=== PATIENT | male | born 1995 | race Hispanic/Latino ===

== ENCOUNTER 2024-02-28 06:26 | Inpatient (IN) | payer SELFPAY ==
[2024-02-28] MEDS ORDERED: EPINEPHrine 1 MG/ML VIAL ONE (07:56)
[2024-02-28] MEDS ORDERED: Bupivacaine PF 0.5% 30 ML VIAL ONE (07:56)
[2024-02-28] MEDS ORDERED: fentaNYL PF 100 MCG/2 ML SYRINGE ONE (07:57)
[2024-02-28] MEDS ORDERED: Lidocaine 2% PF 5 ML VIAL ONE (07:58)
[2024-02-28] MEDS ORDERED: PROPOFOL 20 ML ONE (07:58)
[2024-02-28] MEDS ORDERED: Rocuronium Bromide 10 MG/ML (10ML VIAL) ONE (08:00)
[2024-02-28] MEDS ORDERED: Ketorolac Tromethamine 30 MG (1 mL) VIAL ONE (08:00)
[2024-02-28] MEDS ORDERED: Dexamethasone 20 MG/5 ML VIAL ONE (08:00)
[2024-02-28] MEDS ORDERED: Ondansetron PF 4 MG/2 ML Vial ONE (08:00)
[2024-02-28] MEDS ORDERED: HYDROmorphone 2 MG/ML VIAL ONE (09:03)
[2024-02-28] MEDS ORDERED: SUGAMMADEX SODIUM 200 MG/2 ML VIAL ONE (09:19)
[2024-02-28] MEDS ORDERED: HYDROmorphone 2 MG/ML VIAL SLOW IVP PRN (09:21)
[2024-02-28] MEDS ORDERED: Promethazine HCl 25 MG/ML VIAL IM PRN (09:21)
[2024-02-28] MEDS ORDERED: Ondansetron HCl/PF 4 MG/2 ML Vial IVP PRN (09:21)
[2024-02-28] MEDS ORDERED: PACU-Morphine 4MG/ML VIAL SLOW IVP PRN (09:21)
[2024-02-28] MEDS: Lactated Ringer's 1,000 ML IV SCH (09:33)
[2024-02-28] MEDS ORDERED: hydrALAZINE 20 MG/ML VIAL SLOW IVP PRN (09:59)
[2024-02-28] MEDS ORDERED: Morphine 2 MG/ML VIAL SLOW IVP PRN (09:59)
[2024-02-28] MEDS ORDERED: traMADol HCl 50 MG TAB PO PRN (09:59)
[2024-02-28] MEDS ORDERED: Morphine 4 MG/ML VIAL SLOW IVP PRN (09:59)
[2024-02-28] MEDS ORDERED: Ondansetron PF 4 MG/2 ML Vial IVP PRN (10:11)
[2024-02-28] MEDS ORDERED: Ondansetron ORAL SOLN. 4 MG/5 ML UDCUP PO PRN (10:11)
[2024-02-28] MEDS ORDERED: Acetaminophen 500 MG TAB PO PRN (11:24)
[2024-02-28] MEDS ORDERED: fentaNYL 50 mcg/mL 1 mL Vial ONE (12:01)
[2024-02-28 13:23] VITALS: BMI 30.7
[2024-02-28] MEDS ORDERED: Piperacillin/Tazobactam 4.5 GM in Sodium Chloride 0.9% 100 ML IVPB SCH (14:00)
[2024-02-28] MEDS: Ketorolac Tromethamine 30 MG (1 mL) VIAL IVP SCH ×2 (14:05→15:31)
[2024-02-28] MEDS: Piperacillin/Tazobactam 3.375 GM in Sodium Chloride 0.9% 100 ML IVPB SCH ×2 (15:32→19:46)
[2024-02-28] MEDS: Enoxaparin 40 MG (0.4 mL) SYRINGE SC SCH (19:46)
[2024-02-29 06:05] LABS: #Basophils 0.03 10x3/uL (0.0-0.2); #Eosinphils Less than 0.03 10x3/uL (0.0-0.7); %Basophils 0.2 % (0.0-1.0); %Eosinophils 0.1 % (0.0-10.0); %Lymphocytes 10.1 % (21.0-51.0); %Monocytes 6.5 % (0.0-10.0); %Neutrophils 82.6 % (42.0-75.0); Hematocrit 42.3 % (42.0-52.0); Hemoglobin 13.7 g/dL (14.0-18.0); Mean Corpuscular HGB CONC 32.4 g/dL (32.0-36.0); Mean Corpuscular Hemoglobin 28.5 pg (27.0-31.0); Mean Corpuscular Volume 88.1 fL (78.0-98.0); Mean Platelet Volume 10.4 fL (7.4-10.4); Platelet Count 290 10x3/uL (130-400); RBC Distribution Width 12.2 % (11.5-14.5)
[2024-02-29 06:24] LABS: ALT (SGPT) 15 U/L (8-55); AST (SGOT) 13 U/L (5-34); Albumin 3.2 g/dL (3.5-5.0); Alkaline Phosphatase 51 U/L (40-110); Anion Gap 13 mmol/L (10-20); BUN (Urea Nitrogen) 12 mg/dL (8.9-20.6); Bilirubin, Total 1.1 mg/dL (0.2-1.2); Calc. Creatinine Clearance 178 mL/min (70-130); Calcium 9.4 mg/dL (7.8-10.44); Carbon Dioxide 23 mmol/L (22-29); Chloride 106 mmol/L (98-107); Estimated GFR 125; Globulin 4.1 g/dL (2.4-3.5); Glucose 97 mg/dL (70-105); Protein, Total 7.3 g/dL (6.0-8.3); Sodium 138 mmol/L (136-145)
[2024-02-29] MEDS: Pantoprazole 40 MG VIAL IVP SCH (08:42)
[2024-02-29 13:17] VITALS: BP 145/89; TEMP 98.8
[2024-02-29] MEDS ORDERED: Ibuprofen 600 MG TAB PO PRN (15:00)
[2024-02-29] MEDS ORDERED: Amoxicillin/Potassium Clav 875 MG TAB PO SCH (21:00)
== END 2024-02-29 13:30 | disposition home or self-care (01) | DRG 398 ==
LOC: ERS 06:26 → SDC 07:53 → T4-B 09:45
PROVIDERS: ADMIT Specialist; ATTEND Specialist
PROC: 0DTJ4ZZ Resection of Appendix, Percutaneous Endoscopic Approach (ICD-10-PCS; principal; 2024-02-28)
PROC: 0W9G3ZZ Drainage of Peritoneal Cavity, Percutaneous Approach (ICD-10-PCS; 2024-02-28)
PROC: 3E033XZ Introduction of Vasopressor into Peripheral Vein, Percutaneous Approach (ICD-10-PCS; 2024-02-28)
DX: K35.80 Unspecified acute appendicitis (principal); R18.8 Other ascites; Z79.899 Other long term (current) drug therapy
CPT/HCPCS: 36415; 80053; 85025; 88304; 99285; A4314; A4649; C9113; J0171; J0665; J1100; J1170; J1650; J1885; J2001; J2405; J2543; J2704; J3010; J3490; J7120